=== PATIENT | female | born 1960 | race Caucasian/White ===

== ENCOUNTER 2017-10-23 09:29 | Outpatient (CLI) | payer OTHER ==
--- NOTE | 2017-10-24 11:00 | Ultrasound Report ---
CAROTID DUPLEX: 10/23/2017 CLINICAL INDICATION: Dizziness, giddiness. TECHNIQUE: Real-time sonographic vascular imaging was performed by the tilt tray driver through the carotid arteries utilizing both color-flow and Doppler spectral analysis. Multiple underwriting service representative static images were saved for review. RIGHT Vessel PSV cm/sec EDV cm/sec ICA/CCA RSV Ratio Degree of Stenosis Plaque Estimate % RCCA Prox 142 -- -- RCCA Dist 147 33 -- RECA 103 -- -- RT BULB 124 29 0.84 JERROD Prox 148 43 1.0 JERROD Mid 108 39 0.73 JERROD Dist 95 34 0.64 RVA 67 -- -- RVA flow direction: Antegrade LEFT Vessel PSV cm/sec EDV cm/sec ICA/CCA RSV Ratio Degree of Stenosis Plaque Estimate % LCCA Prox 153 -- -- LCCA Dist 148 36 -- LECA 115 -- -- LFT BULB 131 31 0.88 LICA Prox 188 33 1.2 LICA Mid 116 37 0.78 LICA Dist 90 35 0.60 LVA 67 -- -- LVA flow direction: Antegrade Velocity criteria are extrapolated from diameter data as defined by the Society of Radiologists in Ultrasound Consensus Conference Radiology 2003; 229; 340-346. Degree of Stenosis % ICA PSV cm/sec ICA EDV cm/sec ICA/CCA PSV Ratio Plaque Estimate % Normal < 125 < 40 < 2.0 None <50 < 125 < 40 < 2.0 < 50 50-69 125-130 40-100 2.0-4.0 >/=50 >/=70 but less than near occlusion > 230 > 100 > 4.0 >/=50 Near occlusion High, low or undetectable Variable Variable Visible Total occlusion Undetectable Not applicable Not applicable No detectable lumen FINDINGS Right: There is no plaquing in the right carotid bifurcation or proximal right internal carotid artery. Left: There is mild plaquing in the left carotid bifurcation and proximal left internal carotid artery. No hemodynamically significant stenosis is seen. The vertebral arteries demonstrate antegrade flow bilaterally. IMPRESSION: No evidence of a focal hemodynamically significant carotid stenosis. TD: 10/23/2017 12:43 [facility]
== END 2017-10-23 09:30 | disposition home or self-care (01) ==
LOC: DI 09:29
PROVIDERS: ATTEND Physician Assistant
DX: R42 Dizziness and giddiness (principal); Z82.3 Family history of stroke
CPT/HCPCS: 93880

== ENCOUNTER 2019-04-23 07:51 | Outpatient (CLI) | payer OTHER ==
--- NOTE | 2019-04-24 09:26 | Mammography Report ---
Reason: SCREENING MAMMO Procedure Date: 04/23/2019 Accession Number: [id number] / [id number] Procedure: MGS - Screening Mammo Dig Bilat CPT Code: Final Report FULL RESULT: EXAM: Screening Mammo Dig Bilat DATE: 04/23/2019 8:17 AM CLINICAL HISTORY: Screening encounter. History of late childbearing and early menses. TECHNIQUE: (B) - Bilateral CC, laterally exaggerated CC, MLO views were obtained. COMPARISON: 09/22/2015 through 02/02/2011. PARENCHYMAL PATTERN: (VD) - The breast(s) demonstrate(s) extremely dense parenchyma, limiting the sensitivity of mammography. FINDINGS: Bilateral biopsy markers are again noted. Stable pattern of diffuse punctate calcifications bilaterally. Corresponding to the right breast biopsy marker is a partially obscured mass which has waxed and waned in density over time, biopsy proven benign. There are no suspicious masses, calcifications, or areas of distortion. IMPRESSION: Benign findings. BI-RADS category 2. RECOMMENDATION: (ANNUAL) - Recommend routine annual screening mammography. BI-RADS CATEGORY: (2) - Benign Findings. STANDARD QUALIFYING STATEMENTS: 1. This examination was reviewed with the aid of Computer-Aided Detection (CAD). 2. A negative or benign imaging report should not preclude biopsy if clinically suspicious findings are present. 3. Dense breasts may obscure an underlying neoplasm. 4. This examination was reviewed without the aid of 3D breast imaging (tomosynthesis).
== END 2019-04-23 07:52 | disposition home or self-care (01) ==
LOC: DI.S 07:51
PROVIDERS: ATTEND Nurse Practitioner Family
DX: Z12.31 Encounter for screening mammogram for malignant neoplasm of breast (principal)
CPT/HCPCS: 77067

== ENCOUNTER 2020-12-16 10:53 | Outpatient (CLI) | payer BC ==
--- NOTE | 2020-12-16 11:56 | DEXA Report ---
PROCEDURE: Dexa Spine and/or Hip INDICATIONS: BONE DISORDER TECHNIQUE: Dual energy x-ray absorptiometry (DXA) was performed on a [employer] System. Regions measur ed are the AP Spine, femoral neck, and if needed forearm. COMPARISON: None. FINDINGS: Lumbar Spine: Bone Mineral Density 0.815 g/cm/cm,T score -3.2. Left Hip: Bone Mineral Density 0.544 g/cm/cm,T score -3.7. Left Femoral Neck: Bone Mineral Density 0.571 g/cm/cm, T score -3.4. (T score greater or equal to -1.0: NORMAL) (T score from -1.1 to -2.4: OSTEOPENIA) (T score less than or equal to -2.5 to: OSTEOPOROSIS) Impression: Osteoporosis. Patients with diagnosis of osteoporosis or osteopenia should have regular bone mineral density assess ment. For those eligible for Medicare, routine testing is allowed once every 2 years. Testing frequ ency can be increased for patients who have rapidly progressing disease or for those who are receivin g medical therapy to restore bone mass. Reviewed by: Scott Gama MD on 12/16/2020 11:54 AM PDT Approved by: Scott Gama MD on 12/16/2020 11:54 AM PDT Station ID: [id number]
== END 2020-12-16 10:54 | disposition home or self-care (01) ==
LOC: DI 10:53
PROVIDERS: ATTEND Nurse Practitioner Family
DX: M81.0 Age-related osteoporosis without current pathological fracture (principal)

== ENCOUNTER 2020-12-16 10:56 | Outpatient (CLI) | payer BC ==
--- NOTE | 2020-12-17 12:16 | Mammography Report ---
BILATERAL DIGITAL DIAGNOSTIC MAMMOGRAM 3D/2D: 12/16/2020 CLINICAL: Palpable left breast lump. Comparison is made to exams dated: 04/23/2019 mammogram, 09/22/2015 mammogram, 05/18/2016 ultrasound, ultrasound biopsy, 09/17/2015 ultrasound, and 09/17/2015 mammogram - [facility]. The tissue of both breasts is extremely dense, which lowers the sensitivity of mammography. No significant masses, calcifications, or other findings are seen in either breast. Bilateral diffuse scattered calcifications are redemonstrated. There are also dystrophic calcificatio ns inthe posterior left upper outer quadrant with an associated biopsy marker. A biopsy marker is also noted in the right breast. IMPRESSION: INCOMPLETE: NEEDS ADDITIONAL IMAGING EVALUATION There is no abnormality seen in the left breast to correspond with the palpable abnormality in the up per outer quadrant, however, ultrasound is recommended. Ultrasound will be performed immediately following the current exam. This exam was interpreted at Station ID: [id number]. NOTE: For mammograms, a report in lay terms will be sent to the patient. Approximately 15% of breast malignancies will not be visualized mammographically. In the management of a palpable breast mass, a negative mammogram must not discourage biopsy of a clinically suspicious lesion. Electronically Signed By: Marcelo Kohli M.D. ddp/:12/16/2020 12:29:55 ACR BI-RADS Category 0: Incomplete 3340F PARENCHYMAL PATTERN: (VD) - The breast(s) demonstrate(s) extremely dense parenchyma, limiting the sen sitivity of mammography. BI-RADS CATEGORY: (0) - 0 Ultrasound [id number] Immediate follow-up LATERALITY: (B)
--- NOTE | 2020-12-17 12:16 | Ultrasound Report ---
LIMITED ULTRASOUND OF LEFT BREAST: 12/16/2020 CLINICAL: Palpable left breast lump. Comparison is made to exams dated: 12/16/2020 mammogram, 04/23/2019 mammogram, 05/18/2016 ultrasound, 09/22/2015 mammogram, 09/22/2015 ultrasound biopsy, and 09/17/2015 ultrasound - [facility]. Real-time ultrasound of the left breast upper outer quadrant was performed on the areas of interest. Torres scale images of the real-time examination were reviewed. No discrete cystic or solid mass lesion identified in the area of palpable abnormality. IMPRESSION: NEGATIVE There is no sonographic evidence of malignancy. There is no abnormality seen in the left breast to correspond with the palpable abnormality in the up per outer quadrant, however, clinical followup is recommended. A 1 year screening mammogram is recommended. This exam was interpreted at Station ID: [id number]. Electronically Signed By: Marcelo Kohli M.D. ddp/:12/16/2020 13:21:39 Ultrasound BI-RADS: 1 Negative BI-RADS CATEGORY: (1) - 1 RECOMMENDATION: (ANNUAL) - Recommend routine annual screening mammography. [id number] 1 year screening LATERALITY: (B)
== END 2020-12-16 10:57 | disposition home or self-care (01) ==
LOC: DI 10:56
PROVIDERS: ATTEND Nurse Practitioner Family
DX: N63.21 Unspecified lump in the left breast, upper outer quadrant (principal); R92.8 Other abnormal and inconclusive findings on diagnostic imaging of breast; M81.0 Age-related osteoporosis without current pathological fracture

== ENCOUNTER 2021-10-01 16:27 | Outpatient (CLI) | payer BC ==
[2021-10-01 20:08] LABS: CALCIUM 9.4 mg/dL (8.5-10.3); CREATININE 0.8 mg/dL (0.4-1.0); POTASSIUM 4.1 mmol/L (3.5-5.0)
[2021-10-01 20:26] LABS: THYROID STIMULATING HORMONE 1.77 uIU/mL (0.34-5.60)
[2021-10-01 20:28] LABS: FREE T4 (FREE THYROXINE) 0.81 ng/dL (0.58-1.64)
== END 2021-10-01 16:28 | disposition home or self-care (01) ==
LOC: LAB.S 16:27
PROVIDERS: ATTEND Internal Medicine
DX: M81.0 Age-related osteoporosis without current pathological fracture (principal); R53.83 Other fatigue
CPT/HCPCS: 36415; 80048; 84439; 84443

== ENCOUNTER 2022-09-10 07:00 | Outpatient (CLI) | payer BC, OTHER ==
--- NOTE | 2022-09-10 18:38 | XRAY Report ---
PROCEDURE: Clavicle LT INDICATIONS: LEFT CLAVICLE PAIN TECHNIQUE: 2 views of the clavicle were acquired. COMPARISON: None. FINDINGS: Bones: No acute fractures or dislocations. No suspicious bony lesions. Degenerative changes are se en at the acromioclavicular and likely the sternoclavicular joint, although evaluation of the sternoc lavicular joint is obscured by superimposed structures. Soft tissues: No suspicious soft tissue calcifications. IMPRESSION: No acute osseous abnormality. If symptoms persist or there is continued clinical concern, further rafael luation with MRI or CT may be helpful. Reviewed by: August Cornell MD on 09/10/2022 6:37 PM PDT Approved by: August Cornell MD on 09/10/2022 6:37 PM PDT Station ID: [id number]
== END 2022-09-10 23:59 | disposition home or self-care (01) ==
LOC: DI.S 07:00
PROVIDERS: ATTEND Nurse Practitioner Family
DX: M25.512 Pain in left shoulder (principal)